=== PATIENT | female | born 1975 | race Caucasian/White ===

== ENCOUNTER 2017-09-22 18:46 | Emergency (ER) | payer OTHER ==
[~2017-09-22] VITALS: Ht 167.6 cm; Wt 52.3 kg
[2017-09-22 19:04] VITALS: BP 116/77; PULSE 80; RESP 18; TEMP 98.7; O2SAT 100
[2017-09-22 19:59] VITALS: BP 151/99; PULSE 66; RESP 18; TEMP 98.2; O2SAT 94
--- NOTE | 2017-09-22 22:07 | PD ---
HPI Chief Complaint: Psychiatric Symptoms Time Seen by Provider: 21:45 Travel History International Travel<30 days: No Contact w/Intl Traveler<30days: No Traveled to known affect area: No History of Present Illness HPI 42-year-old female presents under a [employer] act initiated by a physician. According to her paperwork, "6 weeks of crystal meth use. Hallucinations and paranoia. Admits to SI." The patient was seen initially at [facility] [place] the [place] medically [place] and then transferred here for psychiatric evaluation. She denies hallucinations, drug use. She has no other complaints at this time. [facility] Past Medical History ?: Unknown Social History Alcohol Use: Yes (OCC) Tobacco Use: Yes Allergies-Medications (Allergen,Severity, Reaction): Coded Allergies: sulfamethoxazole (Verified Allergy, Unknown, 09/22/17) trimethoprim (Verified Allergy, Unknown, 09/22/17) Review of Systems Except as stated in HPI: all other systems reviewed are Neg Physical Exam Narrative GENERAL: Well-developed well-nourished female who is initially sleeping but easily arousable. SKIN: Warm and dry. HEAD: Atraumatic. Normocephalic. EYES: Pupils equal and round. No scleral icterus. No injection or drainage. ENT: No nasal bleeding or discharge. Mucous membranes pink and moist. NECK: Trachea midline. No JVD. CARDIOVASCULAR: Regular rate and rhythm. No murmur appreciated. RESPIRATORY: No accessory muscle use. Clear to auscultation. Breath sounds equal bilaterally. GASTROINTESTINAL: Abdomen soft, non-tender, nondistended. Hepatic and splenic margins not palpable. MUSCULOSKELETAL: No obvious deformities. No clubbing. No cyanosis. No edema. NEUROLOGICAL: Awake and alert. No obvious cranial nerve deficits. Motor grossly within normal limits. Normal speech. PSYCHIATRIC: Appropriate mood and affect; insight and judgment normal. Anxious. Data Data Last Documented VS Vital Signs Date Time Temp Pulse Resp B/P (MAP) Pulse Ox O2 Delivery O2 Flow Rate FiO2 09/22/17 19:59 98.2 66 18 151/99 (116) 94 Room Air Orders Orders Psych Screen (09/22/17 20:57) MDM Medical Decision Making Medical Screen Exam Complete: Yes Emergency Medical Condition: Yes Medical Record Reviewed: Yes Differential Diagnosis Substance-induced mood disorder, acute psychosis, major depressive disorder, schizophrenia, bipolar disorder Narrative Course 42-year-old female was transferred here from an outside emergency room for psychiatric evaluation. Mental health screening discussed with the patient. Psychiatric screen ordered. I have reviewed her outside lab work. Her AST was 108, ALT 110. Drug screen was positive for benzodiazepines and amphetamines. The patient is medically clear for psychiatric disposition. Diagnosis Primary Impression: Medical clearance for psychiatric admission Deon Davis Sep 22, 2017 22:07
[2017-09-22 23:05] VITALS: BP 130/78; PULSE 67; RESP 16; TEMP 98.3; O2SAT 98
[2017-09-23 02:46] VITALS: BP 131/84; PULSE 88; RESP 18; TEMP 98.6; O2SAT 96
[2017-09-23 06:35] VITALS: BP 130/93; PULSE 71; RESP 17; TEMP 99.1; O2SAT 93
--- NOTE | 2017-09-23 12:25 | PD ---
History of Present Illness Chief Complaint: Psychiatric Symptoms Time Seen by Provider: 12:00 Travel History International Travel<30 Days: No Contact w/Intl Traveler<30days: No Known affected area: No Legal Status Legal Status: Caruso Act Caruso Act Comment: INTITIATED BY: DR LILIANA MD AT [facility]. 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 ED. According to her paperwork, "6 weeks of crystal meth use. Hallucinations and paranoia. Admits to SI." Paperwork reviewed from [facility]. According to the paperwork from [facility] the patient went to the emergency department reporting audio and visual hallucinations, paranoid thoughts prior to being in the ED but denied having them at the time of her evaluation. The patient's toxicology report was positive for amphetamines, benzos, and cannabinoids. The patient was monitored in secure environment and presented no behavioral concerns , no suicidality. The patient is seen. No previous contact with [facility] psychiatry Department. She is alert, oriented, calm and cooperative. Her speech is clear, logical and goal-directed. Affect is congruent. She denies any current hallucinations, no delusions and no paranoia. She denies suicidal or homicidal ideation. She states that she is here because "my family felt that she needed to be placed under the Caruso act again". The patient denies any previous psychiatric history and is not currently in psychiatric treatment. She reluctantly admits that she did use amphetamines but states" I did the drugs because I felt it was the only way of helping my boyfriend get out of his addiction". The patient at this time is requesting discharge from the hospital. PFSH Past Medical History ?: Unknown Psychiatric History Psychiatric History Hx Psychiatric Treatment: DENIES any previous psychiatric history. No history of previous suicide attempt. History of Inpatient Treatment: No Guns or firearms in home: No Social History Single female with currently living with her mother and her son. She is currently unemployed. Hx Alcohol Use: Yes (OCC) Hx Tobacco Use: Yes Hx Substance Use: Yes (AMP, MARIJUANA, BENZO'S) Substance Use Type: Marijuana, Amphetamines-Stimulants, Benzos (Valium,Xanax), Synth Opiates-Pain Pills Hx of Substance Use Treatment: Yes (reports has been on methadone in the past. Reports she's been clean since 2014 and relapsed in June.) Family Psychiatric History Negative Allergies-Medications (Allergen,Severity, Reaction): Coded Allergies: sulfamethoxazole (Verified Allergy, Unknown, 09/22/17) trimethoprim (Verified Allergy, Unknown, 09/22/17) Reported Meds & Prescriptions Reported Meds & Active Scripts Active No Active Prescriptions or Reported Medications Review of Systems Except as stated in HPI: all other systems reviewed are Neg Mental Status Examination Appearance: Appropriate Consciousness: Alert Orientation: x4 Motor Activity: Normal gait Speech: Unremarkable Language: Adequate Fund of Knowledge: Adequate Attention and Concentration: Adequate Memory: Unremarkable Mood: Appropriate Affect: Appropriate Thought Process & Associations: Intact, Logical, Goal directed Thought Content: Appropriate Hallucination Type: None Delusion Type: None Suicidal Ideation: No Suicidal Plan: No Suicidal Intention: No Homicidal Ideation: No Homicidal Plan: No Homicidal Intention: No Insight: Fair Judgment: Impulsive MDM Medical Decision Making Medical Record Reviewed: Yes Assessment/Plan 42-year-old female with no reported psychiatric history and history of opiate and amphetamine abuse who presents to the ED under a Caruso act initiated by ED physician at [facility]. The patient had been living with her boyfriend in [place] up until 4 days ago when her mother went and picked her up. Patient' s mother and her son were concerned that she was exhibiting hallucinations, paranoia, as well as making statements that she was seeing people having their heads blown off and that she would probably like to be one of those people. The patient tested positive for both amphetamines and benzos and cannabinoids. The patient was monitored in secure environment and presented no behavioral concerns and did not appear to be internally stimulated. She denies any suicidality. She is requesting discharge. At this time does not present any evidence of unstable mental illness. It may have possibly be that the behaviors her family observed were related to her use of the amphetamines. At this time the patient does not meet criteria to remain under the Caruso act. She is provided psychoeducation. Strongly encourage her to pursue substance abuse treatment. BA is lifted. Psychiatricallly clear for discharge from ED Orders Orders Psych Screen (09/22/17 20:57) Diet Regular Basic (09/23/17 Breakfast) Diet Regular Basic (09/23/17 Lunch) Results Vital Signs Date Time Temp Pulse Resp B/P (MAP) Pulse Ox O2 Delivery O2 Flow Rate FiO2 09/23/17 06:35 99.1 71 17 130/93 (105) 93 Room Air 09/23/17 02:46 98.6 88 18 131/84 (100) 96 Room Air 09/22/17 23:05 98.3 67 16 130/78 (95) 98 Room Air 09/22/17 19:59 98.2 66 18 151/99 (116) 94 Room Air 09/22/17 19:04 98.7 80 18 116/77 (90) 100 Diagnosis Primary Impression: Medical clearance for psychiatric admission Additional Impressions: Substance abuse Amphetamine-induced psychotic disorder Psychiatrically Cleared: Yes Med/ Other Pt Specific Info: No Meds Exist/No RX given Prescriptions No Active Prescriptions or Reported Meds Disposition: 01 DISCHARGE HOME Condition: Stable Problem Qualifiers Clotilde Walker Sep 23, 2017 12:25
--- NOTE | 2017-09-23 13:27 | PD ---
Physical Exam Date Seen by Provider: Sep 23, 2017 Time Seen by Provider: 13:25 Narrative 42-year-old female previously medically cleared under the [employer] act for psychiatric evaluation. Patient was seen by psychiatric staff and deemed psychiatrically stable for discharge. Patient is to follow-up with Miguel Gregory for her substance abuse issues. Patient remains medically stable at time of discharge. Data Data Last Documented VS Vital Signs Date Time Temp Pulse Resp B/P (MAP) Pulse Ox O2 Delivery O2 Flow Rate FiO2 09/23/17 06:35 99.1 71 17 130/93 (105) 93 Room Air Orders Orders Psych Screen (09/22/17 20:57) Diet Regular Basic (09/23/17 Breakfast) Diet Regular Basic (09/23/17 Lunch) MDM Medical Record Reviewed: Yes Supervised Visit with [place]: Yes Loi Course 42-year-old female previously medically cleared under the [employer] act for psychiatric evaluation. Patient was seen by psychiatric staff and deemed psychiatrically stable for discharge. Patient is to follow-up with Miguel Gregory for her substance abuse issues. Patient remains medically stable at time of discharge. Diagnosis Primary Impression: Medical clearance for psychiatric admission Additional Impressions: Substance abuse Amphetamine-induced psychotic disorder Qualified Codes: F15.950 - Other stimulant use, unspecified with stimulant- induced psychotic disorder with delusions Scripts No Active Prescriptions or Reported Meds Disposition: DISCHARGE HOME Condition: Stable Mendez Torres Sep 23, 2017 13:27
== END 2017-09-23 13:55 | disposition home or self-care (01) ==
LOC: NEDAMB 18:46 → NEPJ 09-23 13:55
DX: F15.950 Other stimulant use, unspecified with stimulant-induced psychotic disorder with delusions (principal); F19.10 Other psychoactive substance abuse, uncomplicated; Z88.2 Allergy status to sulfonamides; Z88.8 Allergy status to other drugs, medicaments and biological substances; Z72.0 Tobacco use
CPT/HCPCS: 99284